=== PATIENT | female | born 1975 | race Caucasian/White ===

== ENCOUNTER → 2023-05-09 13:34 | Outpatient (REF) | payer BC, SELFPAY | LOC: HWRAD 13:34 | PROVIDERS: ATTENDING PHYSICIAN Podiatrist Foot & Ankle Surgery; FAMILY PHYSICIAN Physician Assistant Medical | DX: M72.2 Plantar fascial fibromatosis (principal); M84.374A Stress fracture, right foot, initial encounter for fracture | CPT/HCPCS: 73630 ==

== ENCOUNTER 2023-07-04 16:33 | Emergency (ER) | payer BC, SELFPAY ==
[2023-07-04 16:37] VITALS: BP 174/83; BMI 36.3
--- NOTE | 2023-07-04 17:44 | ED.GENMED ---
History of Present Illness
General
Chief Complaint: Extremity Pain (non-traumatic)
Source: patient
Exam Limitations: none
Time Seen by Provider: 07/04/23 17:32
Nursing documentation reviewed up to this point in time: agreed with
Travel History
Have you had any contact with someone who has COVID-19?: No
Do you have any symptoms of coronavirus? Fever > 100 degrees, chills, cough, shortness of breath, sore throat, loss of taste or smell, muscle aches, or headache?: No
History of Present Illness
History of Present Illness:
pt is a 47 y/o F with no sig pmh previously
has been dealing with chronic plantar foot pain x months
saw podiatry tesha in may who did xrays, pt has heel spur and was dx with plantar fasciitis
pt has had heel lift and gone to PT but her pain which was her whole foot is now jus tin her heel
worse the past week without any changes to footware or any injuries
she callled and her podiatry f/ju is not for 3 weeks
she also stopped taking meloxicam because it was hurting her stomahc
she has pain first thing in th emorning which is very painful
Past History
Past History
ED Past Medical History: None
ED Past Surgical History: None
Social History
Tobacco: Non-smoker
Personal:
Living: with family
Review of Systems
Review of Systems
Allergies reviewed?: Yes
All Other Systems: Not applicable
Phy Exam
Physical Exam
Physical Exam:
GENERAL: Alert , in no apparent distress, comfortable at rest
HEAD: NCAT
CV: 2+ DP PULSES B/L
NEUROLOGICAL: Alert and oriented, no focal neuro deficits, , 5/5 strength, sensation intact,
SKIN: Warm and dry, normal skin
MUSCULOSKELETAL: right foot normal inpsection
tender insertion point of plantar fascia
no swelling
no redness
normla pulse
no other tenderness;
no calf swelling
PSYCH: Normal and appropriate interaction.
Course
Orders/Labs/Results
Orders:
Orders
07/04/23 17:43
CR Foot - Right Min 3 Views Urgent
Comment:
Reason For Exam: right heel pain x months, worse
Vital Signs
Initial and Last Documented VS:
Initial Vital Signs
Temp Pulse Resp BP Pulse Ox
97.7 F 88 16 174/83 96
07/04/23 16:37 07/04/23 16:37 07/04/23 16:37 07/04/23 16:37 07/04/23 16:37
Last Documented Vital Signs
Temp Pulse Resp BP Pulse Ox
97.7 F 88 16 174/83 96
07/04/23 16:37 07/04/23 16:37 07/04/23 16:37 07/04/23 16:37 07/04/23 16:37
MDM/Problems Addressed
Differential Diagnosis Includes:
platnar fasciitis, stress fx
MDM/Problems Addressed:
47 y/o F with ongoing plantar foot pain for months, worse in the past week without injury, has been to podiatry, has heel lift and has been to PT
has not been wearing brace at night
she took nsaids for a few weeks which hurt her stomach so she stopped
re xray today given new pain --> indep reviewed by me, shows the heel spur, no other concerning findings
recommended she brace at night
harder sole shoe
f/u podatiry for possible steeroid injection.
*Critical Care Note
Total Time (30-74mins, 75-104mins- exclusive of procedures): Not Applicable
ED Attending Note
-
Portions of this chart may have been created with voice recognition software.� Occasional wrong word or��sound alike� substitutions may have occurred due to the inherent limitations of voice recognition software.
Discharge Plan
Departure
Patient Disposition: Home (Routine Discharge)
Date of Disposition: 07/04/23
Time of Disposition: 18:37
Patient with high blood pressure during this ER visit?: Yes
Condition: Fair
Discharge Problem:
Plantar fasciitis
Instructions: Heel Pain Caused by Plantar Fasciitis (DC)
Prescriptions:
New
naproxen 500 mg tablet
500 mg PO BID PRN (Reason: Pain) Qty: 10 0RF
No Action
multivitamin Tablet
1 tab PO DAILY
acetaminophen 325 mg Tablet
650 mg PO PRN PRN (Reason: pain)
Vitamin D3
1 gel PO DAILY
tramadol 50 mg tablet
25 mg PO Q6HPRN PRN (Reason: severe pain/breakthrough pain) Qty: 8 0RF
ibuprofen 600 mg tablet
600 mg PO Q6H PRN (Reason: pain) Qty: 14 0RF
Referrals:
Andrey Kern MD [Family Provider] - Follow up in 2-3 days
Activity Restrictions/Additional Instructions:
YOUR FOOT XRAY SHOWS YOUR HEEL SPUR BUT NO OTHER CONCERNING FINDINGS
YOUR SYPMTOMS ARE LIKELY DUE TO PLANTAR FASCIITIS
YOU SHOULD USE A HARD SOLED SHOE ALL THE TIME, DON'T WALK AROUND BAREFOOT
[employer] PLANTAR FASCIITIS SPLINT AND WEAR IT AT NIGHT
USE NAPROXEN 500 MG WITH FOOD TWICE A DAY FO 5 DAYS
SEE YOUR STORAGE GARAGE MANAGER PLANNED
RETURN FOR ANY CONCERNS.
Interventions
Interventions:
*Risk Screen - Suicide Last Done: 07/04/23 16:37
*General Assessment Last Done: 07/04/23 17:20
*Neglect/Abuse Screening Last Done: 07/04/23 16:37
*ED COVID-19 Vaccine History Last Done: 07/04/23 16:37
*Nursing Disposition Last Done: 07/04/23 18:54
ED-Skin Assessment Last Done: 07/04/23 17:35
ED-Peripheral Vascular Assessment Last Done: 07/04/23 17:35
ED-Musculoskeletal Assessment Last Done: 07/04/23 17:35
Discharge Date and Time
Discharge Date/Time: 07/04/23 18:54
Print Language: ZAMBIAN
== END 2023-07-04 18:54 | disposition home or self-care (01) ==
LOC: EMR 16:33
PROVIDERS: EMERGENCY PHYSICIAN Emergency Medicine; FAMILY PHYSICIAN Family Medicine
DX: M72.2 Plantar fascial fibromatosis (principal)
CPT/HCPCS: 99283; 73630

== ENCOUNTER → 2023-07-22 15:01 | Outpatient (REF) | payer BC, SELFPAY | LOC: HWWDC 15:01 | PROVIDERS: ATTENDING PHYSICIAN Obstetrics & Gynecology; FAMILY PHYSICIAN Physician Assistant Medical | DX: Z12.31 Encounter for screening mammogram for malignant neoplasm of breast (principal) | CPT/HCPCS: 77063; 77067 ==

== ENCOUNTER → 2023-08-18 08:28 | Outpatient (REF) | payer BC, SELFPAY | LOC: EMG 08:28 | PROVIDERS: ATTENDING PHYSICIAN Podiatrist Foot & Ankle Surgery; FAMILY PHYSICIAN Physician Assistant Medical | DX: R20.2 Paresthesia of skin (principal) | CPT/HCPCS: 95886; 95910 ==

== ENCOUNTER → 2023-08-30 06:15 | Outpatient (REF) | payer BC, SELFPAY | LOC: MRI 3T 06:15 | PROVIDERS: ATTENDING PHYSICIAN Podiatrist Foot & Ankle Surgery; FAMILY PHYSICIAN Physician Assistant Medical | DX: S92.001A Unspecified fracture of right calcaneus, initial encounter for closed fracture (principal) | CPT/HCPCS: 73718 ==

== ENCOUNTER → 2024-02-06 08:09 | Outpatient (REF) | payer BC, SELFPAY | LOC: WDC 08:09 | PROVIDERS: ATTENDING PHYSICIAN Obstetrics & Gynecology; FAMILY PHYSICIAN Physician Assistant Medical | DX: R92.8 Other abnormal and inconclusive findings on diagnostic imaging of breast (principal) | CPT/HCPCS: 76642 ==